=== PATIENT | female | born 1950 | race Caucasian/White ===

== ENCOUNTER 2022-05-17 15:23 | Inpatient (IN) ==
--- NOTE | 2022-05-17 15:48 | Emergency Department Note ---
Impression & Plan Acute hypoxemic respiratory failure, Infection due to human metapneumovirus (hMPV), Wheezing, Dyspnea ED Provider Note NAME: BREEZY BETTS AGE: 72 SEX: F : 1950 ARRIVES VIA: Walk-In INFORMANT: Patient, ED PROVIDER(S): Kam Wolfe MD CHIEF COMPLAINT: Shortness of breath, possible pneumonia, outpatient referral MEDICAL DECISION MAKING: Patient was seen due to concern for shortness of breath and possible pneumonia. Blood work was obtained and IV was established along with procalcitonin and blood cultures. Patient is hypoxemic but not septic at this time. The patient did receive IV fluids. The patient had already received IM steroids as well as IM Rocephin. Patient was ordered a dose of doxycycline. Patient's blood work shows a normal white count H&H and platelet count. Chest x-ray is negative. Kidney function is unremarkable. Hyponatremia 135. BSG 153 not DKA nonfasting. Troponin is not elevated. Pro-Roberto is not elevated. Patient's viral panel is positive for human metapneumovirus. I did speak with the on-call hospitalist service Dari Cordova PA-C and the patient was admitted by Dr. Sun. Critical Care: I have personally spent 42 minutes of critical care time in direct management of this patient. This includes bedside care, interpretation of diagnostic studies, and testing, discussion with consultants, patient, and family members, and other require inpatient management activities. This 42 minutes is in excess of all separately billable procedures. Prior /Outside records reviewed: None Differential diagnosis: Reactive airway disease, pneumonia, pneumothorax, COPD, CHF, infections, cardiac ischemia, pulmonary embolism, musculoskeletal, gastrointestinal, as well as other pathologies. Diagnostics, as interpreted by me: ECG: Sinus, first-degree AV block, rate of 86, prolonged DE normal QRS normal axis no ST elevations or T WI. Cardiac monitoring: An order was placed for continuous cardiac monitoring. The monitor shows a rate of 82 with sinus rhythm. Patient was placed on pulse oximetry Medical decision rules: none Imaging studies: See below HPI: Patient presents from the [facility] outpatient office concerning for shortness of breath possible pneumonia. Patient states she has had symptoms approximate week in duration with associated shortness of breath and productive cough with clear sputum. The patient is not a smoker. Patient does have a known history of CAD status post stent placement. Patient denies any chest pains leg swelling or calf pain. Patient did receive IM Rocephin and steroids prior to arrival today. Patient was noted to be 86% on room air. The patient was placed on 2 L nasal cannula. The patient does not use any oxygen at home. Patient denies any abdominal pain nausea vomiting. The patient did not take anything for symptoms. Patient was referred here for further evaluation and treatment after being seen. Patient does state that the oxygen has improved her symptoms since she has arrived PAST MEDICAL HISTORY: See Below PAST SURGICAL HISTORY: See Below SOCIAL HISTORY: See Below HOME MEDICATIONS: See Below ALLERGIES: See Below VITALS: See Below PHYSICAL EXAMINATION: GENERAL: Mildly ill in appearance, nasal cannula in place. EYE EXAM: Normal conjunctiva. PERRL, no anisocoria and EOM's grossly intact w/o pain. NECK: Supple, no nuchal rigidity, no adenopathy, non-tender. No signs of mening ismus. FROM of the neck with good chin to chest and neck extension. No stridor. LUNGS: Wheezing noted most prominent with expiration. No obvious rhonchi HEART: NSR, no MRG. ABDOMEN: Abdomen soft, non-tender, normo-active bowel sounds, no masses, no rebound or guarding. BACK: No CVA TTP. SKIN: No rashes and no bruising. UPPER EXTREMITIES: Upper extremities are grossly normal. LOWER EXTREMITIES: Grossly normal, no edema. Negative Homans' sign bilaterally NEURO EXAM: A&O x3, cranial nerves II-XII grossly intact, normal speech, moves all 4 extremities. Past Med/Surg History Medical History CAD (coronary artery disease) Depression Diabetes mellitus, type 2 Fibromyalgia GERD (gastroesophageal reflux disease) Hearing deficit Hyperlipidemia Hypertension Osteoarthritis Thyroid nodule Surgical History Difficult airway for intubation in during sinus [facility] was told "she has a small airway and difficulty intubating her" History of appendectomy History of carpal tunnel surgery of left wrist History of cataract surgery LEFT History of cholecystectomy History of colonoscopy History of esophagogastroduodenoscopy (EGD) History of hysterectomy with unilateral oophorectomy right ovary removed History of sinus surgery History of thumb surgery right History of tonsillectomy History of tooth extraction History of total left knee replacement (TKR) History of total right hip replacement History of total right knee replacement (TKR) History of wisdom tooth extraction Family History Mother Family history of diabetes mellitus Grandmother (Paternal) Family history of diabetes mellitus Grandmother (Maternal) Family history of diabetes mellitus Family/Other Family history of diabetes mellitus nephew Brother Family history of diabetes mellitus Other No family history of adverse response to anesthesia Social History Smoking Status: Former smoker Second Hand Exposure: No; Hx Alcohol Use: No Hx Substance Use: No Preferred Language: Italian Communication Ability: Effective Business Process Expert Required: No Beliefs That Will Affect Care: None Current Living Situation: Spouse Feels Safe at Home: Yes Assistive Devices: Denture - Upper and Glasses Allergies Allergies Allergy/AdvReac Type Severity Reaction Status Date / Time No Known Allergies Allergy Verified 12/15/19 08:14 Home Meds Home Medications Medication Instructions Recorded Confirmed amlodipine 5 mg tablet 5 mg PO PM 11/25/19 05/17/22 atenolol 25 mg tablet 25 mg PO QAM 11/25/19 05/17/22 atorvastatin 40 mg tablet 40 mg PO HS 11/25/19 05/17/22 insulin aspart U-100 100 unit/mL 14 - 24 unit subcut ACHS 11/25/19 05/17/22 (3 mL) subcutaneous pen (Novolog FlexPen U-100 Insulin aspart) insulin degludec 100 unit/mL (3 74 unit subcut HS 11/25/19 05/17/22 mL) subcutaneous pen (Tresiba FlexTouch U-100 insulin) lansoprazole 30 mg capsule,delayed 30 mg PO QAM 11/25/19 05/17/22 release (Prevacid) loratadine 5 mg-pseudoephedrine ER 1 tab PO Q12H PRN Allergy Symptoms 11/25/19 05/17/22 120 mg tablet,extended release,12hr (Claritin-D 12 Hour) losartan 100 mg tablet 100 mg PO QAM 11/25/19 05/17/22 nortriptyline 25 mg capsule 25 mg PO HS 11/25/19 05/17/22 pseudoephedrine HCl 60 mg tablet 60 mg PO Q6H PRN Allergy Symptoms 11/25/19 05/17/22 albuterol sulfate 90 mcg/actuation 2 puff inhalation Q6H PRN 05/17/22 05/17/22 aerosol inhaler Shortness Of Breath alendronate 70 mg tablet 70 mg PO WK 05/17/22 05/17/22 amoxicillin 875 mg-potassium 1 tab PO BID 05/17/22 05/17/22 clavulanate 125 mg tablet aspirin 81 mg tablet,delayed 81 mg PO DAILY 05/17/22 05/17/22 release azithromycin 250 mg tablet 250 - 500 mg PO DAILY 05/17/22 05/17/22 clopidogrel 75 mg tablet 75 mg PO DAILY 05/17/22 05/17/22 conjugated estrogens 0.625 mg/gram 1 applic vaginal 2XWK 05/17/22 05/17/22 vaginal cream (Premarin) cyclosporine 0.05 % eye drops in a 1 drp OPB BID 05/17/22 05/17/22 dropperette (Restasis) hydrochlorothiazide 25 mg tablet 25 mg PO DAILY 05/17/22 05/17/22 prednisone 10 mg tablet 0 mg PO UD 05/17/22 05/17/22 ranolazine 500 mg tablet,extended 500 mg PO BID 05/17/22 05/17/22 release,12 hr Results & Data (ED) Vital Signs Vital Signs - 24 hr 05/17/22 15:35 05/17/22 16:39 05/17/22 16:54 Temperature 36.3 C L Temperature Source Temporal Artery Scan Pulse Rate 87 87 Pulse Rate [Apical] Pulse Rate from SpO2 Sensor Pulse Rhythm Regular Pulse Rhythm [Apical] Pulse Strength Normal Pulse Strength [Apical] Respiratory Rate 20 Respiratory Effort / Characteristics Respiratory Depth Normal Respiratory Pattern Blood Pressure 113/72 Blood Pressure [Right Arm] Blood Pressure Mean 85 Blood Pressure Mean [Right Arm] Pulse Oximetry 91 96 Oxygen Delivery Method Room Air Nasal Cannula Oxygen Flow Rate 2 Sepsis Recent Fever Within 48 Hours Yes Sepsis New/Unexplained Change in Mental Status No Sepsis Action Taken by Nursing No Action Required 05/17/22 16:54 05/17/22 17:00 05/17/22 17:35 Temperature Temperature Source Pulse Rate 87 86 Pulse Rate [Apical] Pulse Rate from SpO2 Sensor 87 87 Pulse Rhythm Pulse Rhythm [Apical] Pulse Strength Pulse Strength [Apical] Respiratory Rate 21 20 Respiratory Effort / Characteristics Respiratory Depth Respiratory Pattern Blood Pressure 144/72 H Blood Pressure [Right Arm] Blood Pressure Mean 96 Blood Pressure Mean [Right Arm] Pulse Oximetry 97 97 Oxygen Delivery Method Nasal Cannula Oxygen Flow Rate 2 Sepsis Recent Fever Within 48 Hours Sepsis New/Unexplained Change in Mental Status Sepsis Action Taken by Nursing 05/17/22 17:35 05/17/22 18:00 05/17/22 18:30 Temperature Temperature Source Pulse Rate Pulse Rate [Apical] Pulse Rate from SpO2 Sensor 88 84 90 Pulse Rhythm Pulse Rhythm [Apical] Pulse Strength Pulse Strength [Apical] Respiratory Rate Respiratory Effort / Characteristics Respiratory Depth Respiratory Pattern Blood Pressure Blood Pressure [Right Arm] Blood Pressure Mean Blood Pressure Mean [Right Arm] Pulse Oximetry 95 95 95 Oxygen Delivery Method Oxygen Flow Rate Sepsis Recent Fever Within 48 Hours Sepsis New/Unexplained Change in Mental Status Sepsis Action Taken by Nursing 05/17/22 19:00 05/17/22 19:05 05/17/22 19:15 Temperature Temperature Source Pulse Rate 82 Pulse Rate [Apical] 84 Pulse Rate from SpO2 Sensor 83 Pulse Rhythm Pulse Rhythm [Apical] Regular Pulse Strength Pulse Strength [Apical] Normal Respiratory Rate 21 22 Respiratory Effort / Characteristics Non-Labored Respiratory Depth Normal Respiratory Pattern Regular Blood Pressure 150/63 H Blood Pressure [Right Arm] 150/63 H Blood Pressure Mean Blood Pressure Mean [Right Arm] 92 Pulse Oximetry 96 96 96 Oxygen Delivery Method Nasal Cannula Nasal Cannula Oxygen Flow Rate 2 2 Sepsis Recent Fever Within 48 Hours Sepsis New/Unexplained Change in Mental Status Sepsis Action Taken by [facility] Medications Current Medication List: was personally reviewed by me Laboratory Data Attestation: I reviewed the patient's lab results. 05/17/22 16:13 05/17/22 16:13 Lab Results 05/17/22 05/17/22 05/17/22 Range/Units 16:13 16:13 16:13 WBC 6.85 (4.8-10.8) K/ul RBC 4.69 (4.20-5.40) M/uL Hgb 13.9 (12.0-16.0) g/dl Hct 40.6 (37.0-47.0) % MCV 86.6 (80.0-100.0) fL MCH 29.6 (25.0-34.0) pg MCHC 34.2 (32.0-36.0) g/dL RDW Std Deviation 39.7 (36.4-46.3) fL RDW Coeff of Emma 12.6 (11.5-14.5) % Plt Count 286 (130-400) K/uL MPV 9.7 (9.4-12.4) fL Immature Gran % (Auto) 0.6 % Neut % (Auto) 55.5 % Lymph % (Auto) 34.0 % [place] % (Auto) 6.0 % Eos % (Auto) 3.2 % Baso % (Auto) 0.7 % Neut # (Auto) 3.80 (1.40-6.50) K/uL Lymph # (Auto) 2.33 (1.2-3.4) K/uL [place] # (Auto) 0.41 (0.11-0.59) K/uL Eos # (Auto) 0.22 (0-0.50) K/uL Baso # (Auto) 0.05 (0-0.2) K/uL Immature Gran # (Auto) 0.04 (0.01-0.20) K/uL Sodium 135 L (136-145) mmol/L Potassium 4.1 (3.5-5.1) mmol/L Chloride 99 (98-107) mmol/L Carbon Dioxide 30 (21-32) mmol/L Anion Gap 6 (3-11) BUN 10 (6-23) mg/dl Creatinine 0.66 (0.6-1.2) mg/dl Est Cr Clr Drug Dosing Not Reportable Est GFR ( Amer) 101.6 ml/min Est GFR (Non-Af Amer) 87.6 ml/min BUN/Creatinine Ratio 15.2 (10-20) Glucose 153 H (70-99(Fasting)) mg/dl Calcium 9.6 (8.5-10.1) mg/dl Total Bilirubin 0.3 (0.2-1.0) mg/dl AST 22 (13-39) U/L ALT 16 (7-52) U/L Alkaline Phosphatase 73 (34-104) U/L Troponin I High Sens 3.9 (0-14) pg/ml Total Protein 7.5 (6.0-8.3) gm/dl Albumin 4.3 (3.4-5.0) gm/dl Globulin 3.2 (2.5-4.0) gm/dl Albumin/Globulin Ratio 1.3 (0.9-2) Procalcitonin (0-0.5) ng/ml TSH 1.592 (0.300-4.500) uIu/ml Urine Color Urine Appearance (Clear) Urine pH (4.5-7.5) Ur Specific [place] (1.000-1.030) Urine Protein (Negative) Urine Glucose (UA) (Negative) Urine Ketones (Negative) Urine Blood (Negative) Urine Nitrite (Negative) Urine Bilirubin (Negative) Urine Urobilinogen (Negative) Ur Leukocyte Esterase (Negative) Adenovirus (PCR) (NotDetected) B. pertussis DNA (PCR) (NotDetected) B.parapertussis DNA PCR (NotDetected) C. pneumoniae DNA (PCR) (NotDetected) Coronavirus OC43 (PCR) (NotDetected) Coronavirus HKU1 (PCR) (NotDetected) Coronavirus 229E (PCR) (NotDetected) SARS-CoV-2 (PCR) (NotDetected) Coronavirus NL63 (PCR) (NotDetected) Human Metapneumovir PCR (NotDetected) Influenza Type A (PCR) (NotDetected) Influenza Type B (PCR) (NotDetected) M. pneumoniae (PCR) (NotDetected) Parainfluenza 1 (PCR) (NotDetected) Parainfluenza 2 (PCR) (NotDetected) Parainfluenza 3 (PCR) (NotDetected) Parainfluenza 4 (PCR) (NotDetected) RSV (PCR) (NotDetected) Entero/Rhino (PCR) (NotDetected) 05/17/22 05/17/22 05/17/22 Range/Units 16:13 16:23 16:27 WBC (4.8-10.8) K/ul RBC (4.20-5.40) M/uL Hgb (12.0-16.0) g/dl Hct (37.0-47.0) % MCV (80.0-100.0) fL MCH (25.0-34.0) pg MCHC (32.0-36.0) g/dL RDW Std Deviation (36.4-46.3) fL RDW Coeff of Emma (11.5-14.5) % Plt Count (130-400) K/uL MPV (9.4-12.4) fL Immature Gran % (Auto) % Neut % (Auto) % Lymph % (Auto) % [place] % (Auto) % Eos % (Auto) % Baso % (Auto) % Neut # (Auto) (1.40-6.50) K/uL Lymph # (Auto) (1.2-3.4) K/uL [place] # (Auto) (0.11-0.59) K/uL Eos # (Auto) (0-0.50) K/uL Baso # (Auto) (0-0.2) K/uL Immature Gran # (Auto) (0.01-0.20) K/uL Sodium (136-145) mmol/L Potassium (3.5-5.1) mmol/L Chloride (98-107) mmol/L Carbon Dioxide (21-32) mmol/L Anion Gap (3-11) BUN (6-23) mg/dl Creatinine (0.6-1.2) mg/dl Est Cr Clr Drug Dosing Est GFR ( Amer) ml/min Est GFR (Non-Af Amer) ml/min BUN/Creatinine Ratio (10-20) Glucose (70-99(Fasting)) mg/dl Calcium (8.5-10.1) mg/dl Total Bilirubin (0.2-1.0) mg/dl AST (13-39) U/L ALT (7-52) U/L Alkaline Phosphatase (34-104) U/L Troponin I High Sens (0-14) pg/ml Total Protein (6.0-8.3) gm/dl Albumin (3.4-5.0) gm/dl Globulin (2.5-4.0) gm/dl Albumin/Globulin Ratio (0.9-2) Procalcitonin < 0.05 (0-0.5) ng/ml TSH (0.300-4.500) uIu/ml Urine Color Yellow Urine Appearance Clear (Clear) Urine pH 8.0 H (4.5-7.5) Ur Specific [place] 1.007 (1.000-1.030) Urine Protein Negative (Negative) Urine Glucose (UA) Negative (Negative) Urine Ketones Negative (Negative) Urine Blood Negative (Negative) Urine Nitrite Negative (Negative) Urine Bilirubin Negative (Negative) Urine Urobilinogen Negative (Negative) Ur Leukocyte Esterase Negative (Negative) Adenovirus (PCR) Not Detected (NotDetected) B. pertussis DNA (PCR) Not Detected (NotDetected) B.parapertussis DNA PCR Not Detected (NotDetected) C. pneumoniae DNA (PCR) Not Detected (NotDetected) Coronavirus OC43 (PCR) Not Detected (NotDetected) Coronavirus HKU1 (PCR) Not Detected (NotDetected) Coronavirus 229E (PCR) Not Detected (NotDetected) SARS-CoV-2 (PCR) Not Detected (NotDetected) Coronavirus NL63 (PCR) Not Detected (NotDetected) Human Metapneumovir PCR DETECTED A* (NotDetected) Influenza Type A (PCR) Not Detected (NotDetected) Influenza Type B (PCR) Not Detected (NotDetected) M. pneumoniae (PCR) Not Detected (NotDetected) Parainfluenza 1 (PCR) Not Detected (NotDetected) Parainfluenza 2 (PCR) Not Detected (NotDetected) Parainfluenza 3 (PCR) Not Detected (NotDetected) Parainfluenza 4 (PCR) Not Detected (NotDetected) RSV (PCR) Not Detected (NotDetected) Entero/Rhino (PCR) Not Detected (NotDetected) Administered Medications Discontinued Medications Albuterol (Albut/Ipratrop 3mg/0.5mg Neb 3 Ml Vial) 3 ml NEB NOW STA; Protocol Stop: 05/17/22 15:53 Last Admin: 05/17/22 16:26 Dose: 3 ml Documented By: CGK Doxycycline Hyclate (Doxycycline Hyclate 100 Mg Cap) 100 mg PO NOW STA Stop: 05/17/22 15:57 Last Admin: 05/17/22 16:24 Dose: 100 mg Documented By: CGK Sodium Chloride (Nss 1000ml) 1,000 mls @ 999 mls/hr IV .Q1H1M MONIQUE Stop: 05/17/22 17:00 Last Infusion: 05/17/22 19:01 Dose: 0 mls/hr Documented By: Admin: 05/17/22 16:21 Dose: 999 mls/hr Documented By: CGK Imaging Data Radiologist's Impression: Chest X-Ray 05/17/22 15:52 SINGLE VIEW CHEST CLINICAL HISTORY: Generalized weakness. FINDINGS: An AP, portable, upright chest radiograph is compared to study dated 05/17/2022. The cardiomediastinal silhouette is top normal for projection noted atherosclerotic calcification of the thoracic aorta. The lungs and pleural spaces are clear noting bibasilar scarring/atelectasis. No pneumothorax is seen. The skeletal structures are osteopenic. The bony thorax is grossly intact. Degenerative change is noted in the shoulders and thoracic spine. Calcific tendinopathy is seen in both shoulders. IMPRESSION: No active disease in the chest. ACT 112: Negative or not required by law. Electronically signed by: Dae Robison M.D. 05/17/2022 4:48 PM Discharge Plan Visit Data Chief Complaint: Illness Stated Complaint: POSSIBLE PNEUMONIA, REF BY DOCTOR ED Provider: Kam Wolfe Discharge Problem: Acute hypoxemic respiratory failure, Infection due to human metapneumovirus (hMPV), Wheezing, Dyspnea Patient Disposition: Admitted As Inpatient Discharge Instructions Interventions: ED Discharge Assessment Last Done: 05/17/22 19:15 Forms Stand Alone Forms: [facility] [employer] Prescriptions Prescriptions: No Action atorvastatin 40 mg Tablet 40 mg PO HS atenolol 25 mg Tablet 25 mg PO QAM amlodipine 5 mg Tablet 5 mg PO PM nortriptyline 25 mg Capsule 25 mg PO HS lansoprazole [Prevacid] 30 mg Capsule,Delayed Release(Dr/Ec) 30 mg PO QAM Claritin-D 12 Hour 5-120 mg Tablet Extended Release 12 Hr 1 tab PO Q12H PRN (Reason: Allergy Symptoms) losartan 100 mg Tablet 100 mg PO QAM pseudoephedrine HCl 60 mg Tablet 60 mg PO Q6H PRN (Reason: Allergy Symptoms) insulin aspart U-100 [Novolog FlexPen U-100 Insulin] 100 unit/mL (3 mL) Insulin Pen 14 - 24 unit SUBCUT ACHS Rx Instructions: 24 unit with breakfast, 22 unit with lunch, 19 with dinner insulin degludec [Tresiba FlexTouch U-100] 100 unit/mL (3 mL) Insulin Pen 74 unit SUBCUT HS prednisone 10 mg tablet 0 mg PO UD Rx Instructions: Rx 05/17/22. Has not started yet azithromycin 250 mg tablet 250 - 500 mg PO DAILY Rx Instructions: Rx on 05/17/22. Has not started yet. 500mg on day 1, 250 on day 2-5 alendronate 70 mg tablet 70 mg PO WK clopidogrel 75 mg tablet 75 mg PO DAILY aspirin 81 mg Tablet,Delayed Release (Dr/Ec) 81 mg PO DAILY Premarin 0.625 mg/gram cream 1 applic vaginal 2XWK hydrochlorothiazide 25 mg tablet 25 mg PO DAILY albuterol sulfate 90 mcg/actuation HFA aerosol inhaler 2 puff INHALATION Q6H PRN (Reason: Shortness Of Breath) Rx Instructions: Rx 05/17/22. Has not started yet amoxicillin-pot clavulanate 875-125 mg tablet 1 tab PO BID Rx Instructions: Rx 05/17/22 - not started yet cyclosporine [Restasis] 0.05 % dropperette 1 drp OPB BID ranolazine 500 mg tablet extended release 12 hr 500 mg PO BID Referrals Referrals: Santiago Munoz MD [Primary Care Provider] -
[2022-05-17] MEDS ORDERED: ALBUT/IPRATROP 3MG/0.5MG NEB 3 ML VIAL NEB STA (15:52)
[2022-05-17] MEDS ORDERED: DOXYCYCLINE HYCLATE 100 MG CAP PO STA (15:56)
[2022-05-17] MEDS ORDERED: SODIUM CHLORIDE 0.9% 1000ML 1,000 ML IV SCH (16:00)
[2022-05-17 16:42] LABS: Hematocrit (blood only) 40.6 % (37.0-47.0); Hemoglobin 13.9 g/dl (12.0-16.0); Mean Corpuscular Hemoglobin 29.6 pg (25.0-34.0); Mean Corpuscular Hgb Conc 34.2 g/dL (32.0-36.0); Mean Corpuscular Volume 86.6 fL (80.0-100.0); Mean Platelet Volume 9.7 fL (9.4-12.4); Platelet Count 286 K/uL (130-400); RDW Coefficient of Variation 12.6 % (11.5-14.5); RDW Standard Deviation 39.7 fL (36.4-46.3); Red Blood Count 4.69 M/uL (4.20-5.40); White Blood Count 6.85 K/ul (4.8-10.8)
--- NOTE | 2022-05-17 16:50 | XRay Report ---
SINGLE VIEW CHEST CLINICAL HISTORY: Generalized weakness. FINDINGS: An AP, portable, upright chest radiograph is compared to study dated 05/17/2022. The cardiom ediastinal silhouette is top normal for projection noted atherosclerotic calcification of the thoraci c aorta. The lungs and pleural spaces are clear noting bibasilar scarring/atelectasis. No pneumothora x is seen. The skeletal structures are osteopenic. The bony thorax is grossly intact. Degenerative ch nadir is noted in the shoulders and thoracic spine. Calcific tendinopathy is seen in both shoulders. IMPRESSION: No active disease in the chest. ACT 112: Negative or not required by law. Electronically signed by: Dae Robison M.D. 05/17/2022 4:48 PM
[2022-05-17 16:51] LABS: Appearance Urine Clear (Clear); Bilirubin Urine Negative (Negative); Blood Urine Negative (Negative); Color Urine Yellow; Glucose Urine UA Negative (Negative); Ketones Urine Negative (Negative); Leukocyte Esterase Urine Negative (Negative); Nitrite Urine Negative (Negative); Protein Urine Negative (Negative); Specific Gravity Urine 1.007 (1.000-1.030); Urobilinogen Urine Negative (Negative)
[2022-05-17 16:53] LABS: Alanine Aminotransferase 16 U/L (7-52); Albumin Globulin Ratio 1.3 (0.9-2); Albumin Level 4.3 gm/dl (3.4-5.0); Alkaline Phosphatase 73 U/L (34-104); Anion Gap 6 (3-11); Aspartate Aminotransferase 22 U/L (13-39); BUN Creatinine Ratio 15.2 (10-20); Bilirubin,Total 0.3 mg/dl (0.2-1.0); Blood Urea Nitrogen 10 mg/dl (6-23); Calcium 9.6 mg/dl (8.5-10.1); Carbon Dioxide 30 mmol/L (21-32); Chloride 99 mmol/L (98-107); Est GFR (African American) 101.6 ml/min; Est GFR (Non-African American) 87.6 ml/min; Globulin 3.2 gm/dl (2.5-4.0); Glucose 153 mg/dl (70-99(Fasting)); Potassium 4.1 mmol/L (3.5-5.1); Sodium 135 mmol/L (136-145); Total Protein 7.5 gm/dl (6.0-8.3)
[2022-05-17 16:59] LABS: Troponin I High Sensitivity 3.9 pg/ml (0-14)
[2022-05-17 17:09] LABS: Basophils # (auto) 0.05 K/uL (0-0.2); Basophils % (auto) 0.7 %; Eosinophils # (auto) 0.22 K/uL (0-0.50); Eosinophils % (auto) 3.2 %; Immature Granulocytes # (auto) 0.04 K/uL (0.01-0.20); Immature Granulocytes % (auto) 0.6 %; Lymphocytes # (auto) 2.33 K/uL (1.2-3.4); Monocytes # (auto) 0.41 K/uL (0.11-0.59); Neutrophils % (auto) 55.5 %
[2022-05-17 17:36] LABS: Adenovirus PCR Not Detected (NotDetected); Bordetella parapertussis PCR Not Detected (NotDetected); Bordetella pertussis PCR Not Detected (NotDetected); Chlamydia pneumoniae PCR Not Detected (NotDetected); Coronavirus 229E PCR Not Detected (NotDetected); Coronavirus CoV-2 (COVID19)PCR Not Detected (NotDetected); Coronavirus HKU1 PCR Not Detected (NotDetected); Coronavirus NL63 PCR Not Detected (NotDetected); Coronavirus OC43PCR Not Detected (NotDetected); Influenza A PCR Not Detected (NotDetected); Influenza B PCR Not Detected (NotDetected); Mycoplasma pneumoniae PCR Not Detected (NotDetected); Parainfluenza Virus 1 PCR Not Detected (NotDetected); Parainfluenza Virus 2 PCR Not Detected (NotDetected); Parainfluenza Virus 3 PCR Not Detected (NotDetected); Parainfluenza Virus 4 PCR Not Detected (NotDetected); Respiratory Syncytial VirusPCR Not Detected (NotDetected); Rhinovirus/Enterovirus PCR Not Detected (NotDetected)
--- NOTE | 2022-05-17 17:43 | History & Physical Report ---
Date of Service May 17, 2022 Assessment & Plan (1) Bronchitis: (2) Hypoxia: Plan: Patient is 72-year-old female with PMH DM II, HTN, HLD, CAD s/p stent, anxiety, depression, GERD presented to ER for URI symptoms x 1 week referred from PCP's office for O2 sat of 87% on RA. In ER afebrile, vital stable. 91% on room air up to 96% on 2 L nasal cannula. No leukocytosis. Negative procalcitonin CXR: No acute infiltrate Respiratory panel + human metapneumovirus Was given 1 g Rocephin IM and 40 mg Kenalog IM in outpatient clinic today In ER given 1L NSS, DuoNeb, doxycycline 100 mg p.o. Will hold off on further antibiotics at this time Scheduled DuoNebs Supplemental oxygen as needed Prednisone 20 mg daily x4 days Cough suppressant as needed CBC, BMP in a.m. (3) Diabetes mellitus, type 2: Plan: Insulin-dependent diabetes A1c: 7.3 on 02/15/2022 Hold home glycemic medications Basal bolus insulin per protocol (4) CAD (coronary artery disease): Plan: S/p stent Continue aspirin, Plavix, atorvastatin, Ranexa (5) Hypertension: Plan: Continue amlodipine, atenolol, HCTZ, losartan (6) GERD (gastroesophageal reflux disease): Plan: Continue PPI DVT Prophylaxis Lovenox SQ Full Code as per discussion with pt Follows with Dr Munoz for routine care Pt was seen and care coordinated with Dr Sun. See addendum I spent a total of 78 minutes reviewing notes, outpatient records, labs, medication, coordinating, documenting and providing care for this patient excluding time spent in the performance of separately billed services. History of Present Illness Chief Complaint: SOB Primary Care Provider: Santiago Munoz MD Patient is 72-year-old female with PMH DM II, HTN, HLD, CAD s/p stent, anxiety, depression, GERD presented to ER for shortness of breath, hypoxia. Patient states for the past week has had sore throat, congestion, body aches, cough, SOB with exertion. She did a home COVID test last week which was negative. Denies known fever or chills. Has been taking Mucinex twice daily with limited relief. Reports has similar symptoms. Today was seen in PCPs office for symptoms and was given Rocephin 1 g IM and Kenalog 40 mg IM in clinic today prior to arrival. Patient was going to be prescribed Augmentin, Zithromax, Prednisone and Albuterol inhaler and discharged home however patient became SOB and hypoxic during CXR with sats down to 87% on room air and patient was referred to ER. Denies diaphoresis, N/V/D/C, MATHUR, dizziness, syncope, vision changes, neck pain, CP, palpitations, hemoptysis, choking, otalgia, abdominal pain, paresthesias, extremity weakness, extremity edema, rashes, urinary symptoms. Allergies Allergy/AdvReac Type Severity Reaction Status Date / Time No Known Allergies Allergy Verified 12/15/19 08:14 Home Medications Medication Instructions Recorded Confirmed Type amlodipine 5 mg tablet 5 mg PO PM 11/25/19 05/17/22 History atenolol 25 mg tablet 25 mg PO QAM 11/25/19 05/17/22 History atorvastatin 40 mg tablet 40 mg PO HS 11/25/19 05/17/22 History insulin aspart U-100 100 unit/mL 14 - 24 unit subcut ACHS 11/25/19 05/17/22 History (3 mL) subcutaneous pen (Novolog FlexPen U-100 Insulin aspart) insulin degludec 100 unit/mL (3 74 unit subcut HS 11/25/19 05/17/22 History mL) subcutaneous pen (Tresiba FlexTouch U-100 insulin) lansoprazole 30 mg capsule,delayed 30 mg PO QAM 11/25/19 05/17/22 History release (Prevacid) loratadine 5 mg-pseudoephedrine ER 1 tab PO Q12H PRN Allergy Symptoms 11/25/19 05/17/22 History 120 mg tablet,extended release,12hr (Claritin-D 12 Hour) losartan 100 mg tablet 100 mg PO QAM 11/25/19 05/17/22 History nortriptyline 25 mg capsule 25 mg PO HS 11/25/19 05/17/22 History pseudoephedrine HCl 60 mg tablet 60 mg PO Q6H PRN Allergy Symptoms 11/25/19 05/17/22 History albuterol sulfate 90 mcg/actuation 2 puff inhalation Q6H PRN 05/17/22 05/17/22 History aerosol inhaler Shortness Of Breath alendronate 70 mg tablet 70 mg PO WK 05/17/22 05/17/22 History amoxicillin 875 mg-potassium 1 tab PO BID 05/17/22 05/17/22 History clavulanate 125 mg tablet aspirin 81 mg tablet,delayed 81 mg PO DAILY 05/17/22 05/17/22 History release azithromycin 250 mg tablet 250 - 500 mg PO DAILY 05/17/22 05/17/22 History clopidogrel 75 mg tablet 75 mg PO DAILY 05/17/22 05/17/22 History conjugated estrogens 0.625 mg/gram 1 applic vaginal 2XWK 05/17/22 05/17/22 History vaginal cream (Premarin) cyclosporine 0.05 % eye drops in a 1 drp OPB BID 05/17/22 05/17/22 History dropperette (Restasis) hydrochlorothiazide 25 mg tablet 25 mg PO DAILY 05/17/22 05/17/22 History prednisone 10 mg tablet 0 mg PO UD 05/17/22 05/17/22 History ranolazine 500 mg tablet,extended 500 mg PO BID 05/17/22 05/17/22 History release,12 hr Past Med/Surg History Medical History CAD (coronary artery disease) Depression Diabetes mellitus, type 2 Fibromyalgia GERD (gastroesophageal reflux disease) Hearing deficit Hyperlipidemia Hypertension Osteoarthritis Thyroid nodule Surgical History Difficult airway for intubation in during sinus @ [facility] was told "she has a small airway and difficulty intubating her" History of appendectomy History of carpal tunnel surgery of left wrist History of cataract surgery LEFT History of cholecystectomy History of colonoscopy History of esophagogastroduodenoscopy (EGD) History of hysterectomy with unilateral oophorectomy right ovary removed History of sinus surgery History of thumb surgery right History of tonsillectomy History of tooth extraction History of total left knee replacement (TKR) History of total right hip replacement History of total right knee replacement (TKR) History of wisdom tooth extraction Family History Mother Family history of diabetes mellitus Grandmother (Paternal) Family history of diabetes mellitus Grandmother (Maternal) Family history of diabetes mellitus Family/Other Family history of diabetes mellitus nephew Brother Family history of diabetes mellitus Other No family history of adverse response to anesthesia Social History Smoking Status: Former smoker Second Hand Exposure: No; Hx Alcohol Use: No Hx Substance Use: No Preferred Language: Frisian Communication Ability: Effective Graphic Artist Required: No Beliefs That Will Affect Care: None Current Living Situation: Spouse Feels Safe at Home: Yes Assistive Devices: Denture - Upper and Glasses Review of Systems Review of Systems: All systems reviewed & are unremarkable except as noted in HPI & below Physical Exam Physical Exam: General: no distress, obese Head: normocephalic, atraumatic Eyes: conjunctiva non-injected, anicteric ENT: normal inspection external ears, nose, mucous membranes moist Neck: supple, trachea midline Lungs: no respiratory distress on current 2L via NC, +diffuse wheezing throughout CV: RRR, no murmur, no pretibial edema Abd: normal BS, soft, non-tender Ext: no cyanosis, no calf tenderness Neuro: A&O x 3, no focal deficits noted, normal affect Skin: warm, dry Results & Data Results & Data ([facility]) Vital Signs (Past 12 Hours) Vital Signs Temp Pulse Resp BP Pulse Ox O2 Del Method O2 Flow Rate 05/17/22 17:35 95 05/17/22 17:35 144/72 H 05/17/22 17:00 86 20 97 05/17/22 16:54 87 21 97 Nasal Cannula 2 05/17/22 16:54 87 05/17/22 16:39 96 Nasal Cannula 2 05/17/22 15:35 36.3 C L 87 20 113/72 91 Room Air Laboratory Results Short CBC 05/17/22 Range/Units 16:13 WBC 6.85 (4.8-10.8) K/ul Hgb 13.9 (12.0-16.0) g/dl Hct 40.6 (37.0-47.0) % Plt Count 286 (130-400) K/uL BMP 05/17/22 16:13 Sodium 135 L Potassium 4.1 Chloride 99 Carbon Dioxide 30 BUN 10 Creatinine 0.66 Glucose 153 H Calcium 9.6 Liver Function 05/17/22 Range/Units 16:13 Total Bilirubin 0.3 (0.2-1.0) mg/dl AST 22 (13-39) U/L ALT 16 (7-52) U/L Alkaline Phosphatase 73 (34-104) U/L Albumin 4.3 (3.4-5.0) gm/dl Urine 05/17/22 Range/Units 16:23 Urine Color Yellow Urine Appearance Clear (Clear) Urine pH 8.0 H (4.5-7.5) Ur Specific [place] 1.007 (1.000-1.030) Urine Protein Negative (Negative) Urine Glucose (UA) Negative (Negative) Diagnostic Findings Chest X-Ray 05/17/22 15:52 SINGLE VIEW CHEST CLINICAL HISTORY: Generalized weakness. FINDINGS: An AP, portable, upright chest radiograph is compared to study dated 05/17/2022. The cardiomediastinal silhouette is top normal for projection noted atherosclerotic calcification of the thoracic aorta. The lungs and pleural spaces are clear noting bibasilar scarring/atelectasis. No pneumothorax is seen. The skeletal structures are osteopenic. The bony thorax is grossly intact. Degenerative change is noted in the shoulders and thoracic spine. Calcific tendinopathy is seen in both shoulders. IMPRESSION: No active disease in the chest. ACT 112: Negative or not required by law. Electronically signed by: Dae Robison M.D. 05/17/2022 4:48 PM Supervising Physician Co-Signing Physician Notes Patient seen and examined. 72-year-old woman who was sent in from PCPs office where she presented for cold symptoms for the past week but has been having cough, shortness of breath and chest tightness. She also reports sore throat and body aches Remote history of smoking [about half a pack a day for about 15 years] Exam notable for obese woman in no distress, on nasal cannula with oxygen saturation at 94 5%, generalized wheezing bilaterally. Labs notable for sodium of 135, glucose glucose of 153, procalcitonin was normal less than 0.05. Respiratory PCR was positive for human metapneumovirus Chest x-ray did not show any acute abnormality. Human metapneumovirus infection Acute bronchitis due to virus infection. We will continue nebs 4 times daily today. Got IM Kenalog 40 mg in the PCPs office today. We will continue prednisone 20 mg daily for now. Continue supportive care. Antitussives. Wean oxygen Will need ambulatory pulse ox prior to discharge. ISS, monitor blood glucose. Continue the home medications. Agree with plans as detailed by Argelia Cordova PA-C
[2022-05-17 17:46] LABS: Human Metapneumovirus PCR DETECTED (NotDetected)
--- NOTE | 2022-05-17 19:19 | Communication Note ---
Date of Service: May 17, 2022 Patient seen and examined. 72-year-old woman who was sent in from PCPs office where she presented for cold symptoms for the past week but has been having cough, shortness of breath and chest tightness. She also reports sore throat and body aches Remote history of smoking [about half a pack a day for about 15 years] Exam notable for obese woman in no distress, on nasal cannula with oxygen saturation at 94 5%, generalized wheezing bilaterally. Labs notable for sodium of 135, glucose glucose of 153, procalcitonin was normal less than 0.05. Respiratory PCR was positive for human metapneumovirus Chest x-ray did not show any acute abnormality. Human metapneumovirus infection Acute bronchitis due to virus infection. We will continue nebs 4 times daily today. Got IM Kenalog 40 mg in the PCPs office today. We will continue prednisone 20 mg daily for now. Continue supportive care. Antitussives. Wean oxygen Will need ambulatory pulse ox prior to discharge. ISS, monitor blood glucose. Continue the home medications. Agree with plans as detailed by Argelia Cordova PA-C
[2022-05-17] MEDS ORDERED: ONDANSETRON INJ 2 MG/ML 2 ML VIAL IV PRN (20:54)
[2022-05-17] MEDS ORDERED: GLUCOSE 40% GEL 15 GM TUBE PO PRN (20:54)
[2022-05-17] MEDS ORDERED: ACETAMINOPHEN 325 MG TAB PO PRN (20:54)
[2022-05-17] MEDS ORDERED: DEXTROSE 50% 50 ML SYRINGE IV PRN (20:54)
[2022-05-17] MEDS ORDERED: CARBOHYDRATES FOR HYPOGLYCEMIA PO PRN (20:54)
[2022-05-17] MEDS ORDERED: GLUCAGON FOR INJ 1 MG VIAL SQ PRN (20:54)
[2022-05-17] MEDS ORDERED: POLYETHYLENE (MIRALAX) 17 GM PACK PO PRN (20:54)
[2022-05-17] MEDS ORDERED: GLUCOSE 10 TAB/TUBE PO PRN (20:54)
[2022-05-17] MEDS ORDERED: NORTRIPTYLINE HCL 25 MG CAP PO SCH (21:00)
[2022-05-17] MEDS: ALBUT/IPRATROP 3MG/0.5MG NEB 3 ML VIAL NEB SCH (21:26)
[2022-05-17] MEDS ORDERED: COUGH DROP (SUGAR FREE) LOZ 24 LOZ/1 BOX BUCCAL PRN (21:35)
[2022-05-17] MEDS ORDERED: COUGH DROP (SUGAR FREE) LOZ 24 LOZ/1 BOX BUCCAL ONE (21:37)
[2022-05-17] MEDS: RANOLAZINE 500 MG ER TAB PO SCH (21:49)
[2022-05-17] MEDS: ENOXAPARIN INJ 40 MG/0.4 ML SYR SQ SCH (21:50)
[2022-05-17] MEDS: ATORVASTATIN 40 MG TAB PO SCH (21:50)
[2022-05-17] MEDS: amLODIPine BESYLATE 5 MG TAB PO SCH (21:51)
[2022-05-17] MEDS: INSULIN ASPART PER UNIT CHARGE SC SCH (22:12)
[2022-05-17] MEDS: guaiFENesin/CODEINE 100MG/10MG 5ML UDC PO PRN (22:19)
[2022-05-17] MEDS: LANTUS PER UNIT CHARGE SQ SCH (22:19)
[2022-05-17] MEDS: NORTRIPTYLINE HCL 25 MG CAP PO SCH (22:26)
[2022-05-18 05:10] LABS: Hematocrit (blood only) 37.3 % (37.0-47.0); Hemoglobin 12.7 g/dl (12.0-16.0); Mean Corpuscular Hemoglobin 29.5 pg (25.0-34.0); Mean Corpuscular Volume 86.7 fL (80.0-100.0); Mean Platelet Volume 9.2 fL (9.4-12.4); Platelet Count 269 K/uL (130-400); RDW Coefficient of Variation 12.5 % (11.5-14.5); RDW Standard Deviation 39.6 fL (36.4-46.3); White Blood Count 6.45 K/ul (4.8-10.8)
[2022-05-18 05:24] LABS: BUN Creatinine Ratio 19.3 (10-20); Calcium 9.1 mg/dl (8.5-10.1); Creatinine Clr Calc Pharmacy 79.8 ml/min; Est GFR (African American) 106.6 ml/min; Potassium 3.7 mmol/L (3.5-5.1)
[2022-05-18] MEDS: ALBUT/IPRATROP 3MG/0.5MG NEB 3 ML VIAL NEB SCH ×4 (07:50→19:23)
[2022-05-18] MEDS: predniSONE 20 MG TAB PO SCH (08:18)
[2022-05-18] MEDS: LOSARTAN POTASSIUM 50 MG TAB PO SCH (08:18)
[2022-05-18] MEDS: ASPIRIN 81 MG ECTAB PO SCH (08:18)
[2022-05-18] MEDS: hydroCHLOROthiazide 25 MG TAB PO SCH (08:18)
[2022-05-18] MEDS: ATENOLOL 25 MG TABLET PO SCH (08:18)
[2022-05-18] MEDS: RANOLAZINE 500 MG ER TAB PO SCH ×2 (08:18→21:06)
[2022-05-18] MEDS: PANTOprazole 40 MG TAB PO SCH (08:18)
[2022-05-18] MEDS: CLOPIDOGREL BISULFATE 75 MG TAB PO SCH (08:18)
[2022-05-18] MEDS: INSULIN ASPART PER UNIT CHARGE SC SCH ×4 (08:26→21:08)
[2022-05-18] MEDS: LANTUS PER UNIT CHARGE SQ SCH (08:27)
--- NOTE | 2022-05-18 09:31 | Electrocardiogram Report ---
Test Reason : Blood Pressure : / mmHG Vent. Rate : 086 BPM Atrial Rate : 086 BPM P-R Int : 226 ms QRS Dur : 072 ms QT Int : 400 ms P-R-T Axes : 029 021 017 degrees QTc Int : 478 ms Sinus rhythm with 1st degree A-V block Otherwise normal ECG When compared with ECG of 05-JUL-2014 11:27, NE interval has increased Vent. rate has increased BY 30 BPM QT has lengthened Confirmed by Wayne Guo ([id number]) on 05/18/2022 9:31:04 AM Referred By: Natalie Dee Confirmed By:Wayne Guo
[2022-05-18 11:25] LABS: Appearance Urine Clear (Clear); Bilirubin Urine Negative (Negative); Blood Urine Negative (Negative); Color Urine Yellow; Glucose Urine UA Negative (Negative); Ketones Urine Negative (Negative); Leukocyte Esterase Urine Negative (Negative); Nitrite Urine Negative (Negative); Protein Urine Negative (Negative); Specific Gravity Urine 1.007 (1.000-1.030); Urobilinogen Urine Negative (Negative); pH Urine 7.5 (4.5-7.5)
--- NOTE | 2022-05-18 18:46 | Hospitalist Progress Note ---
Date of Service May 18, 2022 Assessment & Plan (1) Bronchitis: (2) Hypoxia: Plan: 72-year-old female with PMH DM II, HTN, HLD, CAD s/p stent, anxiety, depression, GERD presented to ER for SOB, cough and hypoxia In ER afebrile, vital stable. 91% on room air up to 96% on 2 L nasal cannula. No leukocytosis. Negative procalcitonin Reviewed CXR imaging taking in the ER that shwed no acute infiltrate Biofire panel positive human metapneumovirus Continue supportive therapy with neb treatment and prednisone Continue guaifenesin Will continue to wean off oxygen supplement Continue monitor closely (3) Diabetes mellitus, type 2: Plan: Insulin-dependent diabetes A1c: 7.3 on 02/15/2022 Continue to hold home glycemic medications Continue basal insulin and sliding scale Continue monitor BS (4) CAD (coronary artery disease): Plan: S/p stent Continue aspirin, Plavix, atorvastatin, Ranexa (5) Hypertension: Plan: Continue amlodipine, atenolol, HCTZ, losartan (6) GERD (gastroesophageal reflux disease): Plan: Continue PPI DVT Prophylaxis Lovenox SQ Full Code I spent a total of 50 minutes reviewing notes, outpatient records, labs, medication, coordinating, documenting and providing care for this patient excluding time spent in the performance of separately billed services. Admission and Anticipated Discharge Date Admission Date: May 17, 2022 Subjective Pt was seen and examined for follow up of SOB and cough Lying in bed with no acute distress Pt said that her breathing is a little better today She said that she is having urinary retention, weak stream and burning sensation with urination Currently on oxygen supplement Denies any chest pain, palpitation, dizziness and fever Review of Systems Review of Systems: All systems reviewed & are unremarkable except as noted in Subjective Physical Exam Physical Exam: General- No acute distress Head- atraumatic Eyes- PERRL, EOMI, ENT- oropharynx clear Neck- supple, no JVD Lungs- +coarse BS Heart- regular rhythm; no murmur Abdomen- normal bowel sounds, soft, nontender Extremities- no calf tenderness Neuro- alert, oriented x 3; PERRL, EOMI; no facial palsy; no dysarthria Skin- warm & dry Results & Data Results & Data ([facility]) Vital Signs (Past 12 Hours) Vital Signs Temp Pulse Resp BP Pulse Ox O2 Del Method O2 Flow Rate 05/18/22 15:25 36.5 C 86 18 126/73 92 Room Air 05/18/22 14:46 74 16 89 L Room Air 05/18/22 11:32 68 18 91 Room Air 05/18/22 08:00 20 95 Room Air 05/18/22 07:50 76 16 92 Nasal Cannula 1
[2022-05-18] MEDS: ENOXAPARIN INJ 40 MG/0.4 ML SYR SQ SCH (21:06)
[2022-05-18] MEDS: amLODIPine BESYLATE 5 MG TAB PO SCH (21:06)
[2022-05-18] MEDS: NORTRIPTYLINE HCL 25 MG CAP PO SCH (21:06)
[2022-05-18] MEDS: ATORVASTATIN 40 MG TAB PO SCH (21:06)
[2022-05-18] MEDS: INSULIN DEGLUDEC 200 UNIT/ML SQ SCH (21:07)
[2022-05-18] MEDS: guaiFENesin/CODEINE 100MG/10MG 5ML UDC PO PRN (21:20)
[2022-05-19] MEDS: ALBUT/IPRATROP 3MG/0.5MG NEB 3 ML VIAL NEB SCH ×4 (07:08→19:30)
[2022-05-19] MEDS: RANOLAZINE 500 MG ER TAB PO SCH ×2 (08:31→21:04)
[2022-05-19] MEDS: ASPIRIN 81 MG ECTAB PO SCH (08:31)
[2022-05-19] MEDS: INSULIN ASPART PER UNIT CHARGE SC SCH ×4 (08:31→21:38)
[2022-05-19] MEDS: hydroCHLOROthiazide 25 MG TAB PO SCH (08:31)
[2022-05-19] MEDS: CLOPIDOGREL BISULFATE 75 MG TAB PO SCH (08:31)
[2022-05-19] MEDS: LOSARTAN POTASSIUM 50 MG TAB PO SCH (08:31)
[2022-05-19] MEDS: ATENOLOL 25 MG TABLET PO SCH (08:31)
[2022-05-19] MEDS: PANTOprazole 40 MG TAB PO SCH (08:31)
[2022-05-19] MEDS: predniSONE 20 MG TAB PO SCH (08:32)
[2022-05-19] MEDS: INSULIN DEGLUDEC 200 UNIT/ML SQ SCH (09:44)
--- NOTE | 2022-05-19 17:02 | Hospitalist Progress Note ---
Date of Service May 19, 2022 Assessment & Plan (1) Bronchitis: (2) Hypoxia: Plan: 72-year-old female with PMH DM II, HTN, HLD, CAD s/p stent, anxiety, depression, GERD presented to ER for SOB, cough and hypoxia In ER afebrile, vital stable. 91% on room air up to 96% on 2 L nasal cannula. No leukocytosis. Negative procalcitonin Reviewed CXR imaging taking in the ER that shwed no acute infiltrate Biofire panel positive human metapneumovirus Continue supportive therapy with neb treatment, prednisone and guaifenesin Continue to wean off oxygen supplement Continue monitor closely (3) Diabetes mellitus, type 2: Plan: Insulin-dependent diabetes A1c: 7.3 on 02/15/2022 Continue to hold home glycemic medications Continue basal insulin and sliding scale Continue monitor BS (4) CAD (coronary artery disease): Plan: S/p stent Continue aspirin, Plavix, atorvastatin, Ranexa (5) Hypertension: Plan: Continue amlodipine, atenolol, HCTZ, losartan (6) GERD (gastroesophageal reflux disease): Plan: Continue PPI DVT Prophylaxis Lovenox SQ Full Code I spent a total of 50 minutes reviewing notes, outpatient records, labs, medication, coordinating, documenting and providing care for this patient excluding time spent in the performance of separately billed services. Admission and Anticipated Discharge Date Admission Date: May 17, 2022 Subjective Pt was seen and examined for follow up of SOB and cough Sitting at the edge of the bed with no acute distress getting ready to eat her lunch She said that her breathing is alot better today Denies any chest pain, palpitation, dizziness and fever Review of Systems Review of Systems: All systems reviewed & are unremarkable except as noted in Subjective Physical Exam Physical Exam: General- No acute distress Head- atraumatic Eyes- PERRL, EOMI, ENT- oropharynx clear Neck- supple, no JVD Lungs- +coarse BS Heart- regular rhythm; no murmur Abdomen- normal bowel sounds, soft, nontender Extremities- no calf tenderness Neuro- alert, oriented x 3; PERRL, EOMI; no facial palsy; no dysarthria Skin- warm & dry Results & Data Results & Data ([facility]) Vital Signs (Past 12 Hours) Vital Signs Temp Pulse Resp BP Pulse Ox O2 Del Method O2 Flow Rate 05/19/22 16:13 36.4 C L 84 18 116/67 94 Nasal Cannula 2.0 05/19/22 15:14 86 18 93 Nasal Cannula 3 05/19/22 12:08 36.6 C 72 19 103/65 97 Nasal Cannula 3.0 05/19/22 11:06 74 20 95 Nasal Cannula 3 05/19/22 07:08 79 16 90 Room Air 05/19/22 06:19 36.9 C 79 20 125/74 95 Nasal Cannula 3
[2022-05-19] MEDS: guaiFENesin/CODEINE 100MG/10MG 5ML UDC PO PRN (20:58)
[2022-05-19] MEDS: ENOXAPARIN INJ 40 MG/0.4 ML SYR SQ SCH (21:00)
[2022-05-19] MEDS: ATORVASTATIN 40 MG TAB PO SCH (21:02)
[2022-05-19] MEDS: amLODIPine BESYLATE 5 MG TAB PO SCH (21:02)
[2022-05-19] MEDS: NORTRIPTYLINE HCL 25 MG CAP PO SCH (21:03)
[2022-05-19] MEDS: LANTUS PER UNIT CHARGE SQ SCH (22:29)
[2022-05-20] MEDS: INSULIN DEGLUDEC 200 UNIT/ML SQ SCH (00:01)
[2022-05-20] MEDS: ALBUT/IPRATROP 3MG/0.5MG NEB 3 ML VIAL NEB SCH ×4 (07:02→19:12)
[2022-05-20] MEDS: ATENOLOL 25 MG TABLET PO SCH (08:16)
[2022-05-20] MEDS: predniSONE 20 MG TAB PO SCH (08:16)
[2022-05-20] MEDS: hydroCHLOROthiazide 25 MG TAB PO SCH (08:16)
[2022-05-20] MEDS: LOSARTAN POTASSIUM 50 MG TAB PO SCH (08:16)
[2022-05-20] MEDS: ASPIRIN 81 MG ECTAB PO SCH (08:16)
[2022-05-20] MEDS: CLOPIDOGREL BISULFATE 75 MG TAB PO SCH (08:16)
[2022-05-20] MEDS: PANTOprazole 40 MG TAB PO SCH (08:17)
[2022-05-20] MEDS: RANOLAZINE 500 MG ER TAB PO SCH ×2 (08:17→20:28)
[2022-05-20] MEDS: INSULIN ASPART PER UNIT CHARGE SC SCH ×4 (08:26→20:24)
[2022-05-20] MEDS: LANTUS PER UNIT CHARGE SQ SCH ×2 (08:27→20:24)
[2022-05-20] MEDS ORDERED: LANTUS PER UNIT CHARGE SQ SCH (09:00)
[2022-05-20] MEDS ORDERED: INSULIN DEGLUDEC 200 UNITS/ML PEN SQ SCH (09:00)
--- NOTE | 2022-05-20 18:03 | Hospitalist Progress Note ---
Date of Service May 20, 2022 Assessment & Plan (1) Bronchitis: (2) Hypoxia: Plan: 72-year-old female with PMH DM II, HTN, HLD, CAD s/p stent, anxiety, depression, GERD presented to ER for SOB, cough and hypoxia In ER afebrile, vital stable. 91% on room air up to 96% on 2 L nasal cannula. No leukocytosis. Negative procalcitonin Reviewed CXR imaging done in the ER showed no acute infiltrate Biofire panel positive human metapneumovirus Continue supportive therapy with neb treatment, prednisone and guaifenesin Currently wean off oxygen supplement and saturated well on RA Will need 2 step on discharge Continue monitor closely (3) Diabetes mellitus, type 2: Plan: Insulin-dependent diabetes A1c: 7.3 on 02/15/2022 Continue to hold home glycemic medications Continue basal insulin and sliding scale Continue monitor BS (4) CAD (coronary artery disease): Plan: S/p stent Continue aspirin, Plavix, atorvastatin, Ranexa (5) Hypertension: Plan: Continue amlodipine, atenolol, HCTZ, losartan (6) GERD (gastroesophageal reflux disease): Plan: Continue PPI DVT Prophylaxis Lovenox SQ Full Code I spent a total of 50 minutes reviewing notes, outpatient records, labs, medication, coordinating, documenting and providing care for this patient excluding time spent in the performance of separately billed services. Admission and Anticipated Discharge Date Admission Date: May 17, 2022 Subjective Pt was seen and examined for follow up of SOB and cough Sitting at the edge of the bed with no acute distress She said that she feels alot better Denies any chest pain, palpitation, dizziness and fever Review of Systems Review of Systems: All systems reviewed & are unremarkable except as noted in Subjective Physical Exam 2 Physical Exam: General- No acute distress Head- atraumatic Eyes- PERRL, EOMI, ENT- oropharynx clear Neck- supple, no JVD Lungs- +coarse BS Heart- regular rhythm; no murmur Abdomen- normal bowel sounds, soft, nontender Extremities- no calf tenderness Neuro- alert, oriented x 3; PERRL, EOMI; no facial palsy; no dysarthria Skin- warm & dry Results & Data Results & Data ([facility]) Vital Signs (Past 12 Hours) Vital Signs Temp Pulse Pulse Resp BP Pulse Ox O2 Del Method 05/20/22 16:06 36.4 C L 80 18 117/71 91 Room Air 05/20/22 15:00 76 05/20/22 15:09 70 18 94 Nasal Cannula 05/20/22 12:42 36.6 C 80 16 118/62 92 Nasal Cannula 05/20/22 07:00 79 05/20/22 11:20 77 18 94 Nasal Cannula 05/20/22 09:00 Nasal Cannula 05/20/22 07:03 85 18 93 Nasal Cannula 05/20/22 06:29 36.5 C 84 18 150/78 H 94 Nasal Cannula O2 Flow Rate 05/20/22 16:06 05/20/22 15:00 05/20/22 15:09 1 05/20/22 12:42 2 05/20/22 07:00 05/20/22 11:20 2 05/20/22 09:00 2 05/20/22 07:03 2 05/20/22 06:29 2
[2022-05-20] MEDS: guaiFENesin/CODEINE 100MG/10MG 5ML UDC PO PRN (20:26)
[2022-05-20] MEDS: ENOXAPARIN INJ 40 MG/0.4 ML SYR SQ SCH (20:27)
[2022-05-20] MEDS: amLODIPine BESYLATE 5 MG TAB PO SCH (20:28)
[2022-05-20] MEDS: NORTRIPTYLINE HCL 25 MG CAP PO SCH (20:28)
[2022-05-20] MEDS: ATORVASTATIN 40 MG TAB PO SCH (20:28)
[2022-05-21 06:39] LABS: BUN Creatinine Ratio 21.2 (10-20); Creatinine Clr Calc Pharmacy 55.5 ml/min; Est GFR (African American) 78.8 ml/min; Potassium 3.6 mmol/L (3.5-5.1)
[2022-05-21] MEDS: ALBUT/IPRATROP 3MG/0.5MG NEB 3 ML VIAL NEB SCH ×3 (07:10→15:39)
[2022-05-21 07:39] LABS: Estimated Average Glucose 157 mg/dl; Hemoglobin A1C 7.1 % (4.5-5.6)
[2022-05-21] MEDS: INSULIN ASPART PER UNIT CHARGE SC SCH ×3 (08:19→16:45)
[2022-05-21] MEDS: LANTUS PER UNIT CHARGE SQ SCH (08:20)
[2022-05-21] MEDS: LOSARTAN POTASSIUM 50 MG TAB PO SCH (08:23)
[2022-05-21] MEDS: PANTOprazole 40 MG TAB PO SCH (08:23)
[2022-05-21] MEDS: ATENOLOL 25 MG TABLET PO SCH (08:23)
[2022-05-21] MEDS: predniSONE 20 MG TAB PO SCH (08:23)
[2022-05-21] MEDS: RANOLAZINE 500 MG ER TAB PO SCH (08:23)
[2022-05-21] MEDS: ASPIRIN 81 MG ECTAB PO SCH (08:23)
[2022-05-21] MEDS: CLOPIDOGREL BISULFATE 75 MG TAB PO SCH (08:24)
[2022-05-21] MEDS: hydroCHLOROthiazide 25 MG TAB PO SCH (08:24)
[2022-05-21] MEDS ORDERED: ACETYLCYSTEINE 10% INHAL SOLN 4 ML **DISPENSED BY RESP. INH ONE (15:00)
--- NOTE | 2022-05-21 15:55 | Discharge Summary ---
Date of Service May 21, 2022 Admission HPI Per Admitting Provider Patient is 72-year-old female with PMH DM II, HTN, HLD, CAD s/p stent, anxiety, depression, GERD presented to ER for shortness of breath, hypoxia. Patient states for the past week has had sore throat, congestion, body aches, cough, SOB with exertion. She did a home COVID test last week which was negative. Denies known fever or chills. Has been taking Mucinex twice daily with limited relief. Reports has similar symptoms. Today was seen in PCPs office for symptoms and was given Rocephin 1 g IM and Kenalog 40 mg IM in clinic today prior to arrival. Patient was going to be prescribed Augmentin, Zithromax, Prednisone and Albuterol inhaler and discharged home however patient became SOB and hypoxic during CXR with sats down to 87% on room air and patient was referred to ER. Denies diaphoresis, N/V/D/C, MATHUR, dizziness, syncope, vision changes, neck pain, CP, palpitations, hemoptysis, choking, otalgia, abdominal pain, paresthesias, extremity weakness, extremity edema, rashes, urinary symptoms. Admission Exam Per Admitting Provider General: no distress, obese Head: normocephalic, atraumatic Eyes: conjunctiva non-injected, anicteric ENT: normal inspection external ears, nose, mucous membranes moist Neck: supple, trachea midline Lungs: no respiratory distress on current 2L via NC, +diffuse wheezing throughout CV: RRR, no murmur, no pretibial edema Abd: normal BS, soft, non-tender Ext: no cyanosis, no calf tenderness Neuro: A&O x 3, no focal deficits noted, normal affect Skin: warm, dry Principal Diagnosis Bronchitis: Hypoxia: Diabetes mellitus, type 2: CAD (coronary artery disease): Hypertension: GERD (gastroesophageal reflux disease): Discharge Exam General- No acute distress Head- atraumatic Eyes- PERRL, EOMI, ENT- oropharynx clear Neck- supple, no JVD Lungs- +coarse BS Heart- regular rhythm; no murmur Abdomen- normal bowel sounds, soft, nontender Extremities- no calf tenderness Neuro- alert, oriented x 3; PERRL, EOMI; no facial palsy; no dysarthria Skin- warm & dry Discharge Data Allergies Allergy/AdvReac Type Severity Reaction Status Date / Time No Known Allergies Allergy Verified 12/15/19 08:14 Ordered Studies Laboratory Results WBC 6.45 K/ul (4.8-10.8) 05/18/22 04:40 RBC 4.30 M/uL (4.20-5.40) 05/18/22 04:40 Hgb 12.7 g/dl (12.0-16.0) 05/18/22 04:40 Hct 37.3 % (37.0-47.0) 05/18/22 04:40 MCV 86.7 fL (80.0-100.0) 05/18/22 04:40 MCH 29.5 pg (25.0-34.0) 05/18/22 04:40 MCHC 34.0 g/dL (32.0-36.0) 05/18/22 04:40 RDW Std Deviation 39.6 fL (36.4-46.3) 05/18/22 04:40 RDW Coeff of Emma 12.5 % (11.5-14.5) 05/18/22 04:40 Plt Count 269 K/uL (130-400) 05/18/22 04:40 MPV 9.2 fL (9.4-12.4) L 05/18/22 04:40 Immature Gran % (Auto) 0.6 % 05/17/22 16:13 Neut % (Auto) 55.5 % 05/17/22 16:13 Lymph % (Auto) 34.0 % 05/17/22 16:13 Wilkin % (Auto) 6.0 % 05/17/22 16:13 Eos % (Auto) 3.2 % 05/17/22 16:13 Baso % (Auto) 0.7 % 05/17/22 16:13 Neut # (Auto) 3.80 K/uL (1.40-6.50) 05/17/22 16:13 Lymph # (Auto) 2.33 K/uL (1.2-3.4) 05/17/22 16:13 Wilkin # (Auto) 0.41 K/uL (0.11-0.59) 05/17/22 16:13 Eos # (Auto) 0.22 K/uL (0-0.50) 05/17/22 16:13 Baso # (Auto) 0.05 K/uL (0-0.2) 05/17/22 16:13 Immature Gran # (Auto) 0.04 K/uL (0.01-0.20) 05/17/22 16:13 Sodium 135 mmol/L (136-145) L 05/21/22 05:54 Potassium 3.6 mmol/L (3.5-5.1) 05/21/22 05:54 Chloride 100 mmol/L (98-107) 05/21/22 05:54 Carbon Dioxide 27 mmol/L (21-32) 05/21/22 05:54 Anion Gap 8 (3-11) 05/21/22 05:54 BUN 18 mg/dl (6-23) 05/21/22 05:54 Creatinine 0.85 mg/dl (0.6-1.2) 05/21/22 05:54 Est Cr Clr Drug Dosing 55.5 ml/min 05/21/22 05:54 Est GFR ( Amer) 78.8 ml/min 05/21/22 05:54 Est GFR (Non-Af Amer) 68.0 ml/min 05/21/22 05:54 BUN/Creatinine Ratio 21.2 (10-20) H 05/21/22 05:54 Glucose 103 mg/dl (70-99(Fasting)) H 05/21/22 05:54 POC Glucose 188 mg/dl (70-99) H 05/21/22 16:40 Estimat Average Glucose 157 mg/dl 05/21/22 05:54 Hemoglobin A1c 7.1 % (4.5-5.6) H 05/21/22 05:54 Calcium 10.0 mg/dl (8.5-10.1) 05/21/22 05:54 Total Bilirubin 0.3 mg/dl (0.2-1.0) 05/17/22 16:13 AST 22 U/L (13-39) 05/17/22 16:13 ALT 16 U/L (7-52) 05/17/22 16:13 Alkaline Phosphatase 73 U/L (34-104) 05/17/22 16:13 Troponin I High Sens 3.9 pg/ml (0-14) 05/17/22 16:13 Total Protein 7.5 gm/dl (6.0-8.3) 05/17/22 16:13 Albumin 4.3 gm/dl (3.4-5.0) 05/17/22 16:13 Globulin 3.2 gm/dl (2.5-4.0) 05/17/22 16:13 Albumin/Globulin Ratio 1.3 (0.9-2) 05/17/22 16:13 Procalcitonin < 0.05 ng/ml (0-0.5) 05/17/22 16:13 TSH 1.592 uIu/ml (0.300-4.500) 05/17/22 16:13 Urine Color Yellow 05/18/22 Unknown Urine Appearance Clear (Clear) 05/18/22 Unknown Urine pH 7.5 (4.5-7.5) 05/18/22 Unknown Ur Specific [place] 1.007 (1.000-1.030) 05/18/22 Unknown Urine Protein Negative (Negative) 05/18/22 Unknown Urine Glucose (UA) Negative (Negative) 05/18/22 Unknown Urine Ketones Negative (Negative) 05/18/22 Unknown Urine Blood Negative (Negative) 05/18/22 Unknown Urine Nitrite Negative (Negative) 05/18/22 Unknown Urine Bilirubin Negative (Negative) 05/18/22 Unknown Urine Urobilinogen Negative (Negative) 05/18/22 Unknown Ur Leukocyte Esterase Negative (Negative) 05/18/22 Unknown Adenovirus (PCR) Not Detected (NotDetected) 05/17/22 16:27 B. pertussis DNA (PCR) Not Detected (NotDetected) 05/17/22 16:27 B.parapertussis DNA PCR Not Detected (NotDetected) 05/17/22 16:27 C. pneumoniae DNA (PCR) Not Detected (NotDetected) 05/17/22 16:27 Coronavirus OC43 (PCR) Not Detected (NotDetected) 05/17/22 16:27 Coronavirus HKU1 (PCR) Not Detected (NotDetected) 05/17/22 16:27 Coronavirus 229E (PCR) Not Detected (NotDetected) 05/17/22 16:27 SARS-CoV-2 (PCR) Not Detected (NotDetected) 05/17/22 16:27 Coronavirus NL63 (PCR) Not Detected (NotDetected) 05/17/22 16:27 Human Metapneumovir PCR DETECTED (NotDetected) A* 05/17/22 16:27 Influenza Type A (PCR) Not Detected (NotDetected) 05/17/22 16:27 Influenza Type B (PCR) Not Detected (NotDetected) 05/17/22 16:27 M. pneumoniae (PCR) Not Detected (NotDetected) 05/17/22 16:27 Parainfluenza 1 (PCR) Not Detected (NotDetected) 05/17/22 16:27 Parainfluenza 2 (PCR) Not Detected (NotDetected) 05/17/22 16:27 Parainfluenza 3 (PCR) Not Detected (NotDetected) 05/17/22 16:27 Parainfluenza 4 (PCR) Not Detected (NotDetected) 05/17/22 16:27 RSV (PCR) Not Detected (NotDetected) 05/17/22 16:27 Entero/Rhino (PCR) Not Detected (NotDetected) 05/17/22 16:27 Impressions Chest X-Ray 05/17/22 15:52 SINGLE VIEW CHEST CLINICAL HISTORY: Generalized weakness. FINDINGS: An AP, portable, upright chest radiograph is compared to study dated 05/17/2022. The cardiomediastinal silhouette is top normal for projection noted atherosclerotic calcification of the thoracic aorta. The lungs and pleural spaces are clear noting bibasilar scarring/atelectasis. No pneumothorax is seen. The skeletal structures are osteopenic. The bony thorax is grossly intact. Degenerative change is noted in the shoulders and thoracic spine. Calcific tendinopathy is seen in both shoulders. IMPRESSION: No active disease in the chest. ACT 112: Negative or not required by law. Electronically signed by: Dae Robison M.D. 05/17/2022 4:48 PM Hospital Course (1) Bronchitis: (2) Hypoxia: 72-year-old female with PMH DM II, HTN, HLD, CAD s/p stent, anxiety, depression, GERD presented to ER for SOB, cough and hypoxia In ER afebrile, vital stable. 91% on room air up to 96% on 2 L nasal cannula. No leukocytosis. Negative procalcitonin Reviewed CXR imaging done in the ER showed no acute infiltrate Biofire panel positive human metapneumovirus Continue supportive therapy with neb treatment, prednisone and guaifenesin Currently wean off oxygen supplement and saturated well on RA 2 step exercise done today and pt required 1.5L NC oxygen with ambulation Pt will not require halfway oxygen, possible due to acute illness. She will follow up with her PCP to reassess the need of oxygen Continue monitor closely (3) Diabetes mellitus, type 2: Insulin-dependent diabetes Most recent hgA1c: 7.1 on 05/2022 Continue to hold home glycemic medications Continue basal insulin and sliding scale Follow up with Endocrinology outpatient (4) CAD (coronary artery disease): S/p stent Continue aspirin, Plavix, atorvastatin, Ranexa (5) Hypertension: Continue amlodipine, atenolol, HCTZ, losartan Stable (6) GERD (gastroesophageal reflux disease): Continue PPI DVT Prophylaxis Lovenox SQ Full Code Disposition Discharge home today I spent a total of 50 minutes reviewing notes, outpatient records, labs, medication, coordinating, documenting and providing care for this patient excluding time spent in the performance of separately billed services. Total Time Total Time Spent Total Time Spent (In Minutes): 35 minutes Discharge Plan Discharge Items Patient Disposition: Home - Self-Care Reason For Visit: HYPOXIA Discharge Diagnosis: Bronchitis: Hypoxia: Diabetes mellitus, type 2: CAD (coronary artery disease): Hypertension: GERD (gastroesophageal reflux disease): Activity: Resume your previous activity Non-emergency contact: Primary Care Provider Call non-emergency contact if: you have any medication questions Follow-up/Referrals: Santiago Munoz MD [Primary Care Provider] - (Date & Time 05/27/2022 5:40 PM Provider Santiago Munoz MD Department [facility] ) Diet: Carb Consistent or DM2 Addtl Attending Provider Instructions: Follow up with your primary care provider 05/27/2022 @ 5:40 PM Santiago Munoz MD [facility] Continue oxygen supplement with 1.5 L Nasal canula with ambulation Continue flutter valve and incentive spirometry Seek urgent attention if your shortness of breath worsening Pending Studies at Discharge: No Stand-Alone Forms: My [facility] [employer], Smoking Cessation Medications and DC Order Prescriptions: New ipratropium-albuterol 0.5 mg-3 mg(2.5 mg base)/3 mL Solution For Nebulization 3 ml NEB QIDR Qty: 90 0RF guaifenesin 200 mg tablet 200 mg PO TID PRN (Reason: congestion) Qty: 21 0RF prednisone 20 mg Tablet 20 mg PO DAILY Qty: 3 0RF Continued atorvastatin 40 mg Tablet 40 mg PO HS atenolol 25 mg Tablet 25 mg PO QAM amlodipine 5 mg Tablet 5 mg PO PM nortriptyline 25 mg Capsule 50 mg PO HS lansoprazole [Prevacid] 30 mg Capsule,Delayed Release(Dr/Ec) 30 mg PO QAM Claritin-D 12 Hour 5-120 mg Tablet Extended Release 12 Hr 1 tab PO Q12H PRN (Reason: Allergy Symptoms) losartan 100 mg Tablet 100 mg PO QAM pseudoephedrine HCl 60 mg Tablet 60 mg PO Q6H PRN (Reason: Allergy Symptoms) insulin aspart U-100 [Novolog FlexPen U-100 Insulin] 100 unit/mL (3 mL) Insulin Pen 14 - 24 unit SUBCUT ACHS Rx Instructions: 24 unit with breakfast, 22 unit with lunch, 19 with dinner insulin degludec [Tresiba FlexTouch U-100] 100 unit/mL (3 mL) Insulin Pen 74 unit SUBCUT HS alendronate 70 mg tablet 70 mg PO WK clopidogrel 75 mg tablet 75 mg PO DAILY aspirin 81 mg Tablet,Delayed Release (Dr/Ec) 81 mg PO DAILY Premarin 0.625 mg/gram cream 1 applic vaginal 2XWK hydrochlorothiazide 25 mg tablet 25 mg PO DAILY albuterol sulfate 90 mcg/actuation HFA aerosol inhaler 2 puff INHALATION Q6H PRN (Reason: Shortness Of Breath) Rx Instructions: Rx 05/17/22. Has not started yet cyclosporine [Restasis] 0.05 % dropperette 1 drp OPB BID ranolazine 500 mg tablet extended release 12 hr 500 mg PO BID Discontinued prednisone 10 mg tablet 0 mg PO UD Rx Instructions: Rx 05/17/22. Has not started yet azithromycin 250 mg tablet 250 - 500 mg PO DAILY Rx Instructions: Rx on 05/17/22. Has not started yet. 500mg on day 1, 250 on day 2-5 amoxicillin-pot clavulanate 875-125 mg tablet 1 tab PO BID Rx Instructions: Rx 05/17/22 - not started yet Discharge Orders: Discharge Order (Routine); Ordered 05/21/22 Ordered By: Abi Jang/Other Patient Handouts: Managing Type 2 Diabetes Admission Data Admit Date/Time: 05/17/22 18:07 Attending Provider: Abi Conn Admit Provider: Mona Sun I. Primary Care Provider: Santiago Munoz Other Providers: Mona Sun I. Other Interventions: Discharge Summary Assessment (RN) Last Done: 05/21/22 16:15
--- NOTE | 2022-05-23 09:11 | Coding Query ---
To promote full compliance with coding requirements relating to patient care, provider participation is requested in all cases of four roll calender operator uncertainty. Please assist us with the question(s) below: Coding Question(s): The diagnosis below was documented in the ER, then subsequently fell off all further documentation. Please indicate if it is still a possible diagnosis or ruled out. Physician's Response(s): ACUTE HYPOXEMIC RESPIRATORY FAILURE ( x ) Diagnosed and POA ( ) Diagnosed and not POA ( ) Ruled out ( ) Other (please specify) MTDD
== END 2022-05-21 17:17 | disposition home or self-care (01) | DRG 202 ==
LOC: ED 15:23 → 4W 18:07 → SUATTDRO 18:07 → 4W 19:15